=== PATIENT | female | born 1955 | race Caucasian/White ===

== ENCOUNTER → 2020-07-30 | Outpatient (CLI) | payer MEDICARE ==
[~2020-07-30] MED LIST: ALLO100T30 PO; AMIO200T42 PO; APIX5TAB PO; ATOR-2 PO; CHOL10003 PO; CO Q10 PO; ESCI20TA5 PO; GABA300C PO; HYDR50TA99 PO; LEVO112T4 PO; MAGN400T9 PO; MULT-658 PO; NORCO; OMEGA 3 ETHYL ESTERS PO; OMEPRA; OMEPRAZOLE PO; ROPI0.254 PO; VITAMIN E PO
[2020-07-30 13:58] LABS: BASOPHILS % (AUTO) 1 % (0-1); EOSINOPHILS % (AUTO) 3 % (1-7); LYMPHOCYTES % (AUTO) 23 % (22-44); MEAN CORPUSCULAR HEMOGLOBIN 33.7 pg (27.0-34.8); MEAN CORPUSCULAR HGB CONC 33.5 g/dL (32.4-35.8); MEAN PLATELET VOLUME 8.1 fL (7.4-10.4); MONOCYTES % (AUTO) 10 % (2-9); NEUTROPHILS % (AUTO) 64 % (42-75); PLATELET COUNT 158 x10^3/uL (130-400); RED BLOOD COUNT 3.59 x10^6/uL (3.82-5.3); RED CELL DISTRIBUTION WIDTH 13.8 % (9.6-15.2)
[2020-07-30 14:05] LABS: ANION GAP 4 mmol/L (5-15); CALCIUM 8.3 mg/dL (8.5-10.1); CHLORIDE 109 mmol/L (98-107)
[2020-07-30 14:07] LABS: CREATININE 1.27 mg/dL (0.55-1.02)
[2020-07-30 14:08] LABS: MD NO
== END | disposition home or self-care (01) ==
LOC: STAR 12:51
PROVIDERS: ATTEND Internal Medicine Cardiovascular Disease
DX: Z01.812 Encounter for preprocedural laboratory examination (principal); Z20.828 Contact with and (suspected) exposure to other viral communicable diseases
CPT/HCPCS: 71046; 80048; 85025; 87635

== ENCOUNTER 2020-08-05 09:57 | Observation (INO) | payer MEDICARE ==
[2020-07-30 13:20] VITALS: BP 119/73
[~2020-08-05] VITALS: Ht 160 cm; Wt 105.3 kg
[2020-08-05] MEDS: SODIUM CHLORIDE 0.9% 1,000 ML IV SCH ×2 (10:30→17:28)
[2020-08-05] MEDS ORDERED: Vitamin D PO (11:04)
[2020-08-05] MEDS ORDERED: LIDOCAINE 1%, 20ML ONE (11:58)
[2020-08-05] MEDS ORDERED: CEFAZOLIN 1,000 MG ONE (11:58)
[2020-08-05] MEDS ORDERED: FENTANYL PF 250 MCG/5ML ONE (12:11)
[2020-08-05] MEDS ORDERED: MIDAZOLAM 1 MG/ML, 2ML ONE (12:11)
[2020-08-05] MEDS ORDERED: PHENYLEPHRINE 10 MG/ML ONE (12:16)
[2020-08-05] MEDS ORDERED: DEXAMETHASONE 4 MG/ML, 1ML ONE (12:16)
[2020-08-05] MEDS ORDERED: ROCURONIUM 10 MG/ML,10ML ONE (12:16)
[2020-08-05] MEDS ORDERED: GLYCOPYRROLATE 0.2MG/1ML, 5ML ONE (12:16)
[2020-08-05] MEDS ORDERED: ONDANSETRON 2MG/ML, 2ML ONE (13:45)
[2020-08-05] MEDS ORDERED: SUGAMMADEX 200 MG/2 ML IVPush ONE (13:45)
[2020-08-05] MEDS ORDERED: PROPOFOL 10 MG/ML, 20ML ONE (13:45)
[2020-08-05] MEDS ORDERED: HOLD MEDICATION MC PRN (14:00)
[2020-08-05] MEDS ORDERED: hydrOXyzine 50MG TABLET PO SCH (14:00)
[2020-08-05] MEDS ORDERED: LABETALOL 5MG/ML, 20ML IV PRN (14:30)
[2020-08-05] MEDS ORDERED: ALBUTEROL SULFATE 2.5 MG/3 ML NPPB PRN (14:30)
[2020-08-05] MEDS ORDERED: EPHEDRINE 50 MG/ML, 1ML IVPush PRN (14:30)
[2020-08-05] MEDS ORDERED: ONDANSETRON 2MG/ML, 2ML IVPush PRN (14:30)
[2020-08-05] MEDS ORDERED: DIAZEPAM 5 MG/ML, 2ML IVPush PRN (14:30)
[2020-08-05] MEDS ORDERED: MEPERIDINE/PF 25MG/0.5ML IVPush PRN (14:30)
[2020-08-05] MEDS ORDERED: hydrALAzine 20 MG/ML, 1ML IV PRN (14:30)
[2020-08-05] MEDS ORDERED: HYDROmorphone 1 MG/ML, 1ML INJ IVPush PRN (14:30)
[2020-08-05] MEDS ORDERED: PROMETHAZINE 25 MG/ML, 1ML IVPush PRN (14:30)
[2020-08-05] MEDS ORDERED: FENTANYL PF 100 MCG/2ML IV PRN (14:30)
[2020-08-05] MEDS ORDERED: OXYcodone 5 MG/5 ML ORAL.SOL UDC PO PRN (14:30)
[2020-08-05] MEDS ORDERED: PROMETHAZINE 12.5 MG SUPP PR PRN (14:30)
[2020-08-05] MEDS ORDERED: ACETAMINOPHEN 325 MG TABLET PO PRN (14:30)
[2020-08-05] MEDS ORDERED: MIDAZOLAM 1 MG/ML, 2ML IV PRN (14:30)
[2020-08-05] MEDS ORDERED: DIPHENHYDRAMINE 50 MG/ML, 1ML IVPush PRN ×2 (14:30)
[2020-08-05 15:40] VITALS: BP 128/79
[2020-08-05] MEDS: ACETAMINOPHEN 325 MG TABLET PO PRN (16:56)
[2020-08-05] MEDS: GABAPENTIN 300 MG CAPSULE PO SCH ×2 (16:56→20:40)
[2020-08-05] MEDS: ROPINIROLE 0.25MG TABLET PO SCH ×2 (16:56→20:40)
[2020-08-05 19:28] VITALS: BP 109/68
[2020-08-05] MEDS: SODIUM CHLORIDE FLUSH 10ML SYR IVF SCH (20:40)
[2020-08-05] MEDS: CEFAZOLIN PMX 1GM/50ML 50 ML IVPB SCH (20:40)
[2020-08-05] MEDS ORDERED: ATORVASTATIN 80 MG TABLET PO SCH (21:00)
[2020-08-06 00:07] VITALS: BP 113/69
[2020-08-06] MEDS: SODIUM CHLORIDE 0.9% 1,000 ML IV SCH ×2 (02:27→10:30)
[2020-08-06] MEDS: CEFAZOLIN PMX 1GM/50ML 50 ML IVPB SCH (04:31)
[2020-08-06] MEDS: ACETAMINOPHEN 325 MG TABLET PO PRN (06:06)
[2020-08-06 07:18] VITALS: BP 120/72
[2020-08-06] MEDS ORDERED: CEPH-376 PO (08:52)
[2020-08-06] MEDS ORDERED: ACET325T26 PO (08:52)
[2020-08-06] MEDS ORDERED: MAGNESIUM OXIDE 400 MG TABLET PO SCH (09:00)
[2020-08-06] MEDS ORDERED: LEVOTHYROXINE 112 MCG TABLET PO SCH (09:00)
[2020-08-06] MEDS ORDERED: ALLOPURINOL 100 MG TABLET PO SCH (09:00)
[2020-08-06] MEDS ORDERED: AMIODARONE 200 MG TABLET PO SCH (09:00)
[2020-08-06] MEDS ORDERED: MULTIVITAMIN 1 TABLET PO SCH (09:00)
[2020-08-06] MEDS ORDERED: ESCITALOPRAM 10MG TABLET PO SCH (09:00)
[2020-08-06] MEDS: GABAPENTIN 300 MG CAPSULE PO SCH (10:11)
[2020-08-06] MEDS: ROPINIROLE 0.25MG TABLET PO SCH (10:11)
[2020-08-06] MEDS: SODIUM CHLORIDE FLUSH 10ML SYR IVF SCH (10:12)
== END 2020-08-06 14:13 | disposition home or self-care (01) ==
LOC: CACL 09:57 → 5SO 13:53 → CACL 19:15
PROVIDERS: ADMIT Internal Medicine Cardiovascular Disease; ATTEND Internal Medicine Cardiovascular Disease
DX: T82.110A Breakdown (mechanical) of cardiac electrode, initial encounter (principal); I48.91 Unspecified atrial fibrillation; N18.9 Chronic kidney disease, unspecified; E66.9 Obesity, unspecified; Y71.2 Prosthetic and other implants, materials and accessory cardiovascular devices associated with adverse incidents; Z95.0 Presence of cardiac pacemaker; Z86.73 Personal history of transient ischemic attack (TIA), and cerebral infarction without residual deficits; Z79.01 Long term (current) use of anticoagulants; Z79.899 Other long term (current) drug therapy; Z87.891 Personal history of nicotine dependence; Z90.5 Acquired absence of kidney; Z98.84 Bariatric surgery status
CPT/HCPCS: 33217; 33235; 36005; 36415; 71045; 86850; 86900; 93312; 93321; 93325; 96365; 96366; C1769; C1773; C1779; C1892; G0378; J0690; J1100; J2250; J2370; J2405; J2704; J3010; J3490; Q9967